=== PATIENT | female | born 1990 | race Asian ===

== ENCOUNTER 2020-05-25 07:29 | Inpatient (IN) ==
[2020-05-25] MEDS ORDERED: OXYTOCIN 30 UNITS/500 ML BAG IV PRN ×3 (08:20→16:57)
[2020-05-25] MEDS ORDERED: PENICILLIN G POTASSIUM 3 MU in DEXTROSE 5% 100 ML IV PRN (08:20)
[2020-05-25] MEDS ORDERED: BETAMETH SOD PHOS/ACETATE IA 6 MG/ML IM STA (08:24)
--- NOTE | 2020-05-25 08:36 | History & Physical Report ---
Date of Service May 25, 2020 Assessment & Plan (1) premature rupture of membranes (PPROM) with unknown onset of labor: 29yo G1 at 36.2 weeks GA. Presents with gross PPROM. 1 Fetus: Cat 1 2. PPROM at 36 weeks. Will start Pitocin, BMZ if COVID negative 3. GBS: Pending. PCN until culture completes 4. Vitals: WNL (2) Supervision of normal first : History of Present Illness Primary Care Provider: NO PCP 29yo G1 at 36.2 weeks GA. Presents with gross ROM. Reports mild contractions. No VB. Good FM. Pregnency by PPROM today. Otherwise uncomplicated. OB Labs: Hemoglobin 11.8 g/dL (12.0-16.0) L 04/08/20 Hematocrit 36.2 % (37-47) L 04/08/20 HIV (1&2) Ab and P24 Ag, 4th Gener Neg (Neg) 04/08/20 Glucose 1 Hour 50 gm Load 152 mg/dl (70-130) H 04/04/20 OB Optional Labs: No Data to Display Labs Reviewed: Blood Type A positive Antibody screen Negative Rubella immune HBsAg Negative HCV Negative H&H 14.5/40.5 PLT 169 Varicella Immune HgA1c 5.2 cffDNA Negative, XY Cystic Fibrosis Negative SMA Negative Hgb Electrophoresis WNL Pap ASCUS, HPV negative Chlamydia Negative GC Negative Trich Negative Allergies Allergy/AdvReac Type Severity Reaction Status Date / Time No Known Allergies Allergy Verified 05/25/20 08:23 Home Medications Home Medications Medication Instructions Recorded Confirmed Type prenat.vits,edwin,mjc-xaqc-cqvye 1 tab PO DAILY 04/03/20 05/25/20 History Patient History Medical History (Updated 05/25/20 @ 08:33 by Alex Leija MD) Patient denies significant medical history Surgical History (Updated 04/03/20 @ 09:31 by Evangelina King) S/P appendectomy Family History (Updated 04/03/20 @ 09:32 by Evangelina King) Father Liver cancer Denies family history of Ovarian cancer Breast cancer Colorectal cancer Social History (Updated 04/03/20 @ 09:07 by Evangelina King) Smoking Status: Never smoker Hx Alcohol Use: No Hx Substance Use: No Preferred Language: Mandarin Czech Communication Ability: Effective Communications Intern Required: No Beliefs That Will Affect Care: None marital status: marital status details: Jarrell Hoyos (32) [phone] Current Living Situation: Spouse Current Living Situation Comment: lives with spouse, no pets current occupational status: employed current occupation: [employer] Feels Safe at Home: Yes Safety Concerns: Feels Safe At This Time Physical Exam Genitourinary: OB Exam Abdomen: + vertex (By BSUS) Manual OB Exam: + cervical dilation 2 cm, + cervical effacement 80%, + station -2 and + amniotic fluid clear OB Exam Monitor Tracing: + category I and + normal FHT variability; no early decelerations present, no late decelerations present and no variable decelerations Results & Data ([facility]) Vital Signs (Past 12 Hours) Vital Signs Temp Pulse Resp BP 05/25/20 07:50 36.8 C 20 05/25/20 07:43 69 128/73 Coding Level of Care Code None Diagnoses premature rupture of membranes (PPROM) with unknown onset of labor O42.919 Supervision of normal first Z34.00
[2020-05-25] MEDS ORDERED: PENICILLIN G POTASSIUM 6 MU in DEXTROSE 5% 250 ML IV STA (08:37)
[2020-05-25 08:45] LABS: Hematocrit (blood only) 36.9 % (37-47); Hemoglobin 12.4 g/dL (12.0-16.0); Mean Corpuscular Hemoglobin 32.5 pg (25-34); Mean Corpuscular Volume 96.6 fL (80-100); Mean Platelet Volume 11.1 fL (7.4-10.4); Platelet Count 143 K/uL (130-400); RDW Standard Deviation 44.8 fL (36.4-46.3); Red Blood Count 3.82 M/uL (4.2-5.4); White Blood Count 7.44 K/uL (4.8-10.8)
[2020-05-25 09:20] LABS: Mean Corpuscular Hgb Conc 33.6 g/dL (32-36)
[2020-05-25] MEDS: LACTATED RINGER'S 1,000 ML IV PRN ×2 (09:39→13:48)
[2020-05-25] MEDS ORDERED: Nursing to Pharmacy Communication SCH (12:00)
[2020-05-25] MEDS ORDERED: BUPIVACAINE 0.25% 30 ML VIAL ONE (13:11)
[2020-05-25] MEDS ORDERED: ePHEDrine sulfate 50 MG/ML AMP ONE (13:11)
[2020-05-25] MEDS ORDERED: fentaNYL citrate 100 MCG/2 ML VIAL ONE (13:11)
[2020-05-25] MEDS ORDERED: fentaNYL 2MCG/ML ROPIVACAINE 1.25MG/ML 100 ML BAG EPI ONE (13:12)
--- NOTE | 2020-05-25 13:47 | Anesthesiology Consultation ---
Date of Service May 25, 2020 Assessment & Plan (1) Encounter for pre-operative examination: Chart Review Chart Review: Patient NOT seen in Pre Admission Testing and Acceptable Risk for Labor Epidural Consults Requested none ASA ASA2 Proposed Anesthesia Anesthesia Type: Labor Epidural Risk / Benefits Reviewed With: PT / POA / Parent / Guardian, Accepts Plan and Informed Consent Obtained History Height/Weight Height: 5 ft 6 in Weight: 61.235 kg Allergies Allergy/AdvReac Type Severity Reaction Status Date / Time No Known Allergies Allergy Verified 05/25/20 08:23 Medications Home Medications Medication Instructions Recorded Confirmed Last Taken prenat.vits,edwin,zji-lyjy-gozda 1 tab PO DAILY 04/03/20 05/25/20 05/23/20 20:00 Active Medications Generic Name Dose Route Start Last Admin Trade Name Freq PRN Reason Stop Dose Admin Lactated Ringer's 1,000 mls @ 125 mls/hr 05/25/20 08:20 05/25/20 13:48 Lr IV 05/27/20 08:19 125 mls/hr .Q8H PRN Administration L&D Protocol Protocol Oxytocin 30 units in 500 mls @ 14 mls/hr 05/25/20 08:25 05/25/20 13:05 Pitocin IV 05/27/20 08:24 0.84 units/hr .Q24H PRN 14 mls/hr Labor Induction/Augmentation Titration Protocol 0.84 UNITS/HR NPO Date Last Intake of Fluids: 05/25/20 Time Last Intake of Fluids: 13:44 Date Last Intake of Solids: 05/24/20 Time Last Intake of Solids: 17:00 Past Medical History Medical History Patient denies significant medical history Exercise / Class Metabolic Activity II 4-5 Yardwork/Stairs/Walk up hill Past Family History Family History Father Liver cancer Denies family history of Ovarian cancer Breast cancer Colorectal cancer Past Surgical History Surgical History S/P appendectomy Past Anesthesia History No Hx of Anesthesia Complications History of PONV No Hx of PONV Social History Smoking Status: Never smoker Hx Alcohol Use: No Hx Substance Use: No Review of Systems Negative for chest pain or shortness of breath. Patient denies history of abnormal bleeding or bleeding disorder. Patient denies active use of anticoagulants other than low dose aspirin. Patient denies numbness, tingling or weakness in lower extremities. Physical Exam Vital Signs Last Vital Signs Temp 37.0 C 05/25/20 11:25 Pulse 68 05/25/20 13:41 Resp 20 05/25/20 12:28 BP 124/79 05/25/20 13:15 Pulse Ox 98 05/25/20 13:41 Constitutional not obese (gravid uterus) ENMT Mouth: no TMJ abnormality and oral opening not small Thyromental Distance: > or= 3.5 Finger Breadths Mallampati Class: II Neck normal visual inspection; neck extension not limited Respiratory normal respiratory effort Auscultation: lungs clear to auscultation bilaterally Cardiovascular Rate/Rhythm: regular rate and regular rhythm Heart Sounds: no murmur Neurologic moves all extremities Psychiatric Orientation: alert and oriented x 3 Testing Laboratory Results 05/25/20 08:33
[2020-05-25] MEDS ORDERED: ONDANSETRON INJ 2 MG/ML 2 ML VIAL IV PRN (14:13)
[2020-05-25] MEDS ORDERED: NALOXONE HCL 0.4 MG/1 ML VIAL/CARP IV PRN (14:13)
[2020-05-25] MEDS ORDERED: diphenhydrAMINE 50 MG/ML VIAL IV PRN (14:13)
[2020-05-25] MEDS ORDERED: NALOXONE HCL 1 MG in SODIUM CHLORIDE 0.9% 1000ML 1,000 ML IV PRN (14:13)
[2020-05-25] MEDS ORDERED: ePHEDrine sulfate 50 MG/ML AMP IV PRN (14:13)
[2020-05-25] MEDS ORDERED: fentaNYL 2MCG/ML ROPIVACAINE 1.25MG/ML 100 ML BAG EPI PRN (14:13)
--- NOTE | 2020-05-25 16:38 | Delivery Summary ---
Vaginal Delivery Summary Date of Service May 25, 2020 Vaginal Delivery Summary Patient had arrived at 36 weeks and 2 days with P PROM and 2 cm dilatation she was given Celestone antibiotics were started initially however group B strep status was obtained and was found to be negative so antibiotics were stopped patient was given Pitocin she progressed to full dilatation should be noted she did receive an epidural pushed over a second-degree tear and left upper occiput anterior position no nuchal cord clear fluid gentle traction no excessive force live vigorous infant cord clamped and cut cord gases obtained cord blood obtained placenta removed with gentle traction IV Pitocin started there were some small clots in the lower segment of uterus that should return manually removed second-degree tear repaired with 3-0 Vicryl sponge instrument counts correct estimated blood loss 300 mL [facility] Vaginal Delivery Charge Procedure Anesthesia type: Epidural
[2020-05-25] MEDS ORDERED: HYDROCORTISONE ACETATE 25 MG SUPP PR PRN (16:57)
[2020-05-25] MEDS ORDERED: bisacodyL 10 MG SUPP PR PRN (16:57)
[2020-05-25] MEDS ORDERED: BENZOCAINE 20% AER SPR 82.5 GM CAN EXT PRN (16:57)
[2020-05-25] MEDS ORDERED: LACTATED RINGER'S 1,000 ML IV SCH (16:57)
[2020-05-25] MEDS ORDERED: oxyCODONE/ACETAMINOPHEN 5mg/325mg TAB PO PRN (16:57)
[2020-05-25] MEDS ORDERED: SUPERCREAM 0.870% 15 GM JAR EXT PRN (16:57)
[2020-05-25] MEDS ORDERED: DIPHTHERIA/TETANUS/PERTUSSIS 0.5 ML SYR/VIAL IM ONE (17:00)
[2020-05-25] MEDS ORDERED: ACETAMINOPHEN 325 MG TAB PO PRN (17:00)
[2020-05-25 17:09] LABS: Base Excess Cord Arterial Bld -4.8 mEq/L (-9-1.8); CO2 Cord Arterial Blood 39 mmHg (39.1-73.5); HCO3 Cord Arterial Blood 21 mmol/L (19.7-28.5); PO2 Cord Arterial Blood 26 mmHg (4.1-31.7); pH Cord Arterial Blood 7.34 (7.1-7.38)
[2020-05-25 17:17] LABS: Base Excess Cord Venous Blood -5.6 mEq/L (-7.7-1.9); Cord Venous Blood HCO3 19 mmol/L (18.4-26.8); Cord Venous Blood PCO2 35 mmHg (30.4-57.2); Cord Venous Blood PO2 28 mmHg (14.1-43.3); Cord Venous Blood pH 7.36 (7.20-7.44)
[2020-05-25 17:18] LABS: Oxygen Sat Cord Arterial Blood < 60.0 % (<60)
--- NOTE | 2020-05-25 18:16 | Anesthesia Procedure Note ---
Date of Service May 25, 2020 Anesthesia Post Epidural Note Vital Signs Vital Signs: Temp Pulse Resp BP Pulse Ox 36.9 C 93 H 20 103/56 L 98 05/25/20 15:01 05/25/20 18:04 05/25/20 17:33 05/25/20 18:04 05/25/20 16:26 Pain Intensity Bilateral Abdomen: Pain Intensity: 2 Notes Mental Status: alert / awake / arousable and participated in evaluation Nausea / Vomiting: adequately controlled Pain: adequately controlled Airway Patency, RR, SpO2: stable & adequate BP & HR: stable & adequate Hydration State: stable & adequate Neuraxial Anesthesia: was administered and sensory block is resolving Anesthetic Complications: no major complications apparent and Pt Satisfied with anesthetic care Epidural: Removed without complications and With tip intact Notes: Epidural site clean, dry and intact. No signs of edema, erythema or bruising at insertion site. Pt instructed to request anesthesia if she has residual lower extremity numbness or if she develops lower extremity pain or weakness, back pain or headache.
[2020-05-25] MEDS: DOCUSATE SODIUM 100 MG CAP PO SCH (21:16)
[2020-05-26] MEDS: IBUPROFEN 600 MG TAB PO PRN ×3 (01:02→21:51)
[2020-05-26 06:35] LABS: Hematocrit (blood only) 32.9 % (37-47); Mean Corpuscular Hemoglobin 32.4 pg (25-34); Mean Corpuscular Hgb Conc 33.4 g/dL (32-36); Mean Corpuscular Volume 96.8 fL (80-100); Mean Platelet Volume 11.3 fL (7.4-10.4); Platelet Count 151 K/uL (130-400); RDW Coefficient of Variation 13.1 % (11.5-14.5); White Blood Count 16.58 K/uL (4.8-10.8)
--- NOTE | 2020-05-26 06:43 | Obstetrical Progress Note ---
Date of Service May 26, 2020 Assessment & Plan (1) state: doing well Subjective Ambulation: ambulating normally Voiding: no voiding problems Diet Tolerance:: regular diet Lochia:: Small Feeding Type:: breast feeding Current Pain Level(1-10): 2 Results & Data ([facility]) Vital Signs (Past 12 Hours) Vital Signs Temp Pulse Pulse Resp BP BP 05/26/20 03:15 97.7 F 75 16 96/64 L 05/26/20 00:10 98.1 F 83 16 98/61 L 05/25/20 19:40 98.8 F 90 16 101/69 05/25/20 19:18 86 99/57 L 05/25/20 19:03 101 H 102/63 05/25/20 18:49 81 98/60 L 05/25/20 18:48 20
[2020-05-26] MEDS: PRENATAL VITAMIN 1 TAB PO SCH (07:46)
[2020-05-26] MEDS: DOCUSATE SODIUM 100 MG CAP PO SCH ×2 (07:46→21:51)
[2020-05-26] MEDS ORDERED: NON-FORMULARY MEDICATION (Prenat.Vits,Cal,Min-Iron-Folic 1 TAB) PO SCH (09:00)
[2020-05-26] MEDS ORDERED: bisacodyL 5 MG TABEC PO SCH (20:00)
[2020-05-27] MEDS: IBUPROFEN 600 MG TAB PO PRN (04:34)
[2020-05-27 06:26] LABS: Hematocrit (blood only) 32.2 % (37-47); Hemoglobin 10.7 g/dL (12.0-16.0)
[2020-05-27] MEDS: DOCUSATE SODIUM 100 MG CAP PO SCH (07:30)
[2020-05-27] MEDS: PRENATAL VITAMIN 1 TAB PO SCH (07:31)
--- NOTE | 2020-05-27 08:03 | Obstetrical Progress Note ---
Date of Service <Tello Alvarado MD - Last Filed: 05/27/20 08:03> May 27, 2020 Assessment & Plan <Tello Alvarado MD - Last Filed: 05/27/20 08:03> (1) : - PNL: Rh pos, RI, GBS neg, COVID neg - Feels well today. Eating well, voiding well, ambulating well - Pain well controlled with ibuprofen 600mg Q4H PRN - Routine care - After discharge will have 6 week follow-up with Dr. Fleming - Ready for d/c today Subjective <Tello Alvarado MD - Last Filed: 05/27/20 08:03> Jose is a 29 y/o female who is PPD #2 following at 36 weeks. She reports feeling well overall this morning. Moderate abdominal cramping and 5/10 pain well managed on analgesics. Voiding well. Tolerating meals overnight without difficulty. Patient has been able to ambulate some. Is passing gas and has had bowel movement. Has persistent lochia with some improvement this morning. Currently well. Review of Systems Denies fever or chills. Denies shortness of breath or cough. Denies chest pain. Denies breast pain. Denies dysuria. Denies leg pain or leg swelling. Denies headache or changes in vision. Physical Exam <Tello Alvarado MD - Last Filed: 05/27/20 08:03> General: Alert, oriented. No acute distress. Cardiac: Regular rate and rhythm. No murmurs. Respiratory: Clear to auscultation bilaterally a/p, no wheezes/rales/rhonchi. No increased work of breathing. Symmetrical chest rise. No respiratory distress. Abdomen: Soft, nontender, nondistended. Bowel sounds present. Uterus: Uterine fundus firm, palpable 2 cm below umbilicus. Lower Extremities: No lower extremity edema or swelling. No deep calf pain. Roel's negative bilaterally. Results & Data ([facility]) <Tello Alvarado MD - Last Filed: 05/27/20 08:03> Vital Signs (Past 12 Hours) Vital Signs Temp Pulse Resp BP Pulse Ox 05/26/20 23:29 36.7 C 75 16 98/65 L 97 <Diego Fleming MD, FACOG - Last Filed: 05/27/20 08:16> Co-Signing Physician Notes Resident Physician Supervision Note: I was present with [Name of resident] during the history and exam. I discussed the case with the resident and agree with the findings and plan as documented in the note. Any exceptions or clarifications are listed here: [None] Documented By: Diego Fleming MD, FACOG Resident Activity Tracking <Tello Alvarado MD - Last Filed: 05/27/20 08:03> Resident Involvement: Resident Care Provided Care Provided: OB Delivery
== END 2020-05-27 13:40 | disposition home or self-care (01) | DRG 807 ==
LOC: OPB 07:29 → 4S1 07:30 → 4S2 20:01